=== PATIENT | male | born 1990 | race Two or more races ===

== ENCOUNTER 2023-11-29 10:27 | Emergency (ER) | payer MEDICAID ==
[~2023-11-29] VITALS: Ht 175.3 cm; Wt 77.3 kg
[2023-11-29 10:31] VITALS: TEMP 97.8
[2023-11-29] MEDS ORDERED: ALBUTEROL SULFATE 2.5 MG/0.5 ML NEB SOLUTION NEB ONE (10:45)
[2023-11-29] MEDS ORDERED: IPRATROPIUM BROMIDE 0.5 MG/2.5 ML NEB SOLUTION NEB ONE (10:45)
[2023-11-29 10:51] VITALS: PULSE 65; RESP 18; O2SAT 99
[2023-11-29 11:06] VITALS: PULSE 63; RESP 18; O2SAT 100
[2023-11-29 11:32] VITALS: BP 140/92; PULSE 66; RESP 18
[2023-11-29] MEDS ORDERED: ALBUTEROL SULFATE HFA 90 MCG/PUFF 8 GM INHALER IH ONE (11:45)
== END 2023-11-29 12:00 | disposition home or self-care (01) ==
LOC: EMS 10:28
DX: J45.909 Unspecified asthma, uncomplicated (principal)
CPT/HCPCS: 99283; 94640; J3535